=== PATIENT | female | born 1995 | race Asian ===

== ENCOUNTER 2017-06-16 21:55 | Emergency (ER) | payer OTHER ==
[~2017-06-16] VITALS: Ht 154.9 cm; Wt 44.3 kg
[2017-06-16] MEDS ORDERED: MOTRIN600 MG PO (23:26)
[2017-06-16] MEDS ORDERED: AMOXICILLIN875 MG PO (23:26)
[2017-06-16] MEDS ORDERED: ZITHROMAX500 MG PO (23:38)
[2017-06-17 00:10] VITALS: BP 111/70
== END 2017-06-17 00:11 | disposition home or self-care (01) ==
LOC: EXP 21:55 → EME 21:55 → EDBD 21:55 → EXP 06-17 00:11
DX: J02.9 Acute pharyngitis, unspecified (principal)
CPT/HCPCS: 87651 90; 99281; 99284